=== PATIENT | male | born 1950 ===

== ENCOUNTER 2023-04-07 14:29 | Inpatient (IN) | payer OTHER ==
[~2023-04-07] VITALS: Ht 170.2 cm; Wt 59.0 kg
[2023-04-07 15:06] LABS: PH,URINE 6.5 (5.0-8.0); URINE APPEARANCE Clear; URINE BILIRRUBIN Negative (NEGATIVE); URINE BLOOD Negative; URINE COLOR Yellow; URINE GLUCOSE Negative (NEGATIVE); URINE LEUKOCYTE Negative; URINE NITRATE Negative
[2023-04-07 15:10] LABS: URINE EPITHELIAL CELLS 1.8 uL (0.0-38.8); URINE WBC 2.4 uL (0.0-23.2)
[2023-04-07] MEDS ORDERED: COZAAR25 MG PO (15:10)
[2023-04-07] MEDS ORDERED: SYNTHROID50 MCG PO (15:11)
[2023-04-07] MEDS ORDERED: DIALYVITE TABL1 EACH PO (15:11)
[2023-04-07] MEDS ORDERED: PLAQUENIL 200MG (15:12)
[2023-04-07] MEDS ORDERED: NEURONTIN800 MG PO (15:12)
[2023-04-07] MEDS ORDERED: TRILEPTAL600 MG PO (15:13)
[2023-04-07] MEDS ORDERED: OMEPRAZOLE MAGN20 MG PO (15:13)
[2023-04-07] MEDS ORDERED: TRAZIMERA150 MG IV (15:13)
[2023-04-07] MEDS ORDERED: RESTORIL30 M1 PO (15:15)
[2023-04-07 15:24] LABS: HEMATOCRIT 37.4 % (39.0-48.0); HEMOGLOBIN 12.5 g/dL (13-16.00); MEAN CELL VOLUME 89.1 fL (80.0-100.00); MEAN CORPUSCULAR HEMOGLOBIN 29.7 pg (27.00-32.0); MEAN CORPUSCULAR HGB CONC 33.3 g/dl (32.0-36.0); PLATELET COUNT 210 K/uL (150-450); RED BLOOD COUNT 4.19 M/uL (4.00-6.00)
[2023-04-07 15:25] LABS: INR 1.01; PARTIAL THROMBOPLASTIN TIME 27.2 SECONDS (22.0-34.0); PROTHROMBIN TIME 10.6 SECONDS (9.0-11.5)
[2023-04-07 15:29] LABS: ALBUMIN 3.4 gm/dL (3.4-5.0); BILIRUBIN TOTAL 0.39 mg/dL (0.3-1.2); CALCIUM 9.2 mg/dL (8.5-10.1); CREATININE SERUM 0.95 mg/dL (0.70-1.30); GFR 78.15; GLOBULINA 3.4 G/DL (2.4-3.5); POTASSIUM 4.6 mEq/L (3.5-5.1); TOTAL PROTEIN 6.8 gm/dL (6.4-8.2)
[2023-04-07 15:46] LABS: RED CELL DISTRIBUTION WIDTH 16.7 % (11.5-14.5)
[2023-04-07 15:52] LABS: URINE BACTERIA 2.5 uL (0.0-1933); URINE PROTEIN 100 (NEGATIVE)
[2023-04-11 05:09] LABS: HEMATOCRIT 31.7 % (39.0-48.0); MEAN CELL VOLUME 90.1 fL (80.0-100.00); MEAN CORPUSCULAR HGB CONC 32.9 g/dl (32.0-36.0); RED BLOOD COUNT 3.52 M/uL (4.00-6.00); RED CELL DISTRIBUTION WIDTH 16.6 % (11.5-14.5)
[2023-04-11 05:15] LABS: HEMOGLOBIN 10.4 g/dL (13-16.00); MEAN CORPUSCULAR HEMOGLOBIN 29.5 pg (27.00-32.0); PLATELET COUNT 142 K/uL (150-450)
[2023-04-11] MEDS ORDERED: INSULIN GL100 UNIT/1 (09:34)
[2023-04-11] MEDS ORDERED: ATORVASTATIN CA10 MG (09:34)
[2023-04-11] MEDS ORDERED: XELJANZ XR11 MG (09:34)
[2023-04-11] MEDS ORDERED: METHOTREXATE2.5 MG (09:35)
[2023-04-11] MEDS ORDERED: INSULIN LI100 UNIT/1 (09:35)
[2023-04-11] MEDS ORDERED: FOLIC ACID1 MG (09:35)
[2023-04-11] MEDS ORDERED: VITAMIN E (09:35)
[2023-04-11] MEDS ORDERED: PAIN RELIEVER500 M5 (09:35)
[2023-04-11] MEDS ORDERED: TRAZODONE HCL150 MG (09:35)
[2023-04-11] MEDS ORDERED: HYDROXYCHLOROQ200 MG (09:37)
[2023-04-12 07:46] LABS: HEMATOCRIT 28.9 % (39.0-48.0); HEMOGLOBIN 9.6 g/dL (13-16.00); MEAN CELL VOLUME 90.2 fL (80.0-100.00); MEAN CORPUSCULAR HGB CONC 33.2 g/dl (32.0-36.0); PLATELET COUNT 140 K/uL (150-450); RED BLOOD COUNT 3.21 M/uL (4.00-6.00); RED CELL DISTRIBUTION WIDTH 16.1 % (11.5-14.5)
[2023-04-12] MEDS ORDERED: INTEGRA PLUS C1 EACH PO (07:47)
[2023-04-12] MEDS ORDERED: XARELTO10 MG PO (07:47)
[2023-04-12] MEDS ORDERED: TRAMADOL HCL50 MG PO (07:48)
[2023-04-12] MEDS ORDERED: BACTRIM DS TAB1 EACH PO (07:48)
== END 2023-04-12 15:50 | DRG 522 ==
LOC: CIR.AMB 04-10 06:24 → SURG 04-10 07:18 → O/R 04-10 07:18 → EDSTATUS 04-10 09:00 → CIR.AMB 04-10 09:00 → SURH 04-10 09:01 → CIR.AMB 04-10 14:16 → SURG 04-10 15:27 → CIR.AMB 04-10 17:57 → SURG 04-10 18:55
PROVIDERS: ADMIT Orthopaedic Surgery Sports Medicine; ATTEND Orthopaedic Surgery Sports Medicine
PROC: 0SRS0JZ Replacement of Left Hip Joint, Femoral Surface with Synthetic Substitute, Open Approach (ICD-10-PCS; principal; 2023-04-10 12:00)
DX: S72.002A Fracture of unspecified part of neck of left femur, initial encounter for closed fracture (principal); E11.9 Type 2 diabetes mellitus without complications; Z79.4 Long term (current) use of insulin; I10 Essential (primary) hypertension

== ENCOUNTER 2023-04-19 19:34 | Emergency (ER) | payer OTHER ==
[~2023-04-19] VITALS: Ht 170.2 cm; Wt 59.0 kg
[~2023-04-19 19:34] MED LIST: ATORVASTATIN CA10 MG; BACTRIM DS TAB1 EACH PO; COZAAR25 MG PO; DIALYVITE TABL1 EACH PO; FOLIC ACID1 MG; HYDROXYCHLOROQ200 MG; INSULIN GL100 UNIT/1; INSULIN LI100 UNIT/1; INTEGRA PLUS C1 EACH PO; METHOTREXATE2.5 MG; NEURONTIN800 MG PO; OMEPRAZOLE MAGN20 MG PO; PAIN RELIEVER500 M5; PLAQUENIL 200MG; RESTORIL30 M1 PO; SYNTHROID50 MCG PO; TRAMADOL HCL50 MG PO; TRAZIMERA150 MG IV; TRAZODONE HCL150 MG; TRILEPTAL600 MG PO; VITAMIN E; XARELTO10 MG PO; XELJANZ XR11 MG
[2023-04-19 21:35] LABS: HEMATOCRIT 31.2 % (39.0-48.0); HEMOGLOBIN 10.4 g/dL (13-16.00); MEAN CELL VOLUME 88.3 fL (80.0-100.00); MEAN CORPUSCULAR HEMOGLOBIN 29.5 pg (27.00-32.0); MEAN CORPUSCULAR HGB CONC 33.4 g/dl (32.0-36.0); PLATELET COUNT 319 K/uL (150-450); RED BLOOD COUNT 3.53 M/uL (4.00-6.00); RED CELL DISTRIBUTION WIDTH 17.4 % (11.5-14.5)
[2023-04-19 21:36] LABS: URINE APPEARANCE Clear; URINE BILIRRUBIN Negative (NEGATIVE); URINE BLOOD Negative; URINE COLOR Yellow; URINE GLUCOSE Negative (NEGATIVE); URINE LEUKOCYTE Negative; URINE NITRATE Negative; URINE PROTEIN Negative (NEGATIVE); URINE UROBILINOGEN 0.2 E.U./dl
[2023-04-19 21:39] LABS: URINE BACTERIA 1.2 uL (0.0-1933); URINE EPITHELIAL CELLS 0.7 uL (0.0-38.8); URINE RBC 0.5 uL (0.0-20.8); URINE WBC 0 uL (0.0-23.2)
[2023-04-19 21:45] LABS: CREATININE SERUM 1.19 mg/dL (0.70-1.30); GFR 60.26; POTASSIUM 4.19 mEq/L (3.5-5.1)
[2023-04-19 22:31] LABS: ABG PH 7.478 (7.35-7.45); ABG PO2 88.3 mmHg (80-100); ABG pCO2 32.9 mmHg (35-45); BICARBONATE 23.8 mmol/l (23-25); SaO2 97.5 %; Tco2 24.8 mmol/l; o2 21 %; puncture site RADIAL RIGHT
[2023-04-19 22:32] LABS: allen test SATISFACTORY
[2023-04-20 08:07] LABS: HEMOGLOBIN 10.4 g/dL (13-16.00); MEAN CELL VOLUME 88.5 fL (80.0-100.00); MEAN CORPUSCULAR HEMOGLOBIN 29.7 pg (27.00-32.0); MEAN CORPUSCULAR HGB CONC 33.5 g/dl (32.0-36.0); PLATELET COUNT 289 K/uL (150-450); RED BLOOD COUNT 3.51 M/uL (4.00-6.00); RED CELL DISTRIBUTION WIDTH 17.2 % (11.5-14.5)
[2023-04-20 08:24] LABS: ALBUMIN 2.9 gm/dL (3.4-5.0); BILIRUBIN TOTAL 0.53 mg/dL (0.3-1.2); CALCIUM 8.9 mg/dL (8.5-10.1); CREATININE SERUM 1.06 mg/dL (0.70-1.30); GFR 68.87; GLOBULINA 3.9 G/DL (2.4-3.5); POTASSIUM 4.45 mEq/L (3.5-5.1); TOTAL PROTEIN 6.8 gm/dL (6.4-8.2)
[2023-04-20 10:00] LABS: ERYTHROCYTE SEDIMENTATION RATE 60 mm/hr
== END 2023-04-20 18:53 | disposition home or self-care (01) ==
LOC: ER 19:34
PROVIDERS: General Practice; Internal Medicine
DX: R05.9 Cough, unspecified (principal); Z88.0 Allergy status to penicillin; Z88.6 Allergy status to analgesic agent; I10 Essential (primary) hypertension; M19.90 Unspecified osteoarthritis, unspecified site; F41.8 Other specified anxiety disorders; Z20.822 Contact with and (suspected) exposure to COVID-19
CPT/HCPCS: 36415; 71045; 71250; 82803; 94640; 96365; 96366; 99284; J0456; J1956; J7042